=== PATIENT | female | born 1960 | race Caucasian/White ===

== ENCOUNTER 2020-01-23 17:00 | Emergency (ER) | payer BC ==
[2020-01-23] MEDS ORDERED: ONDANSETRON 4 MG TAB.RAPDIS PO ONE (18:07)
--- NOTE | 2020-01-23 18:09 | ER Document Report ---
ED Medical Screen (RME) - General Chief Complaint: High Blood Pressure Stated Complaint: BLOOD PRESSURE PROBLEM Time Seen by Provider: 01/23/20 18:06 Notes: 59-year-old female presented to ED for complaint of nausea and dizziness when she woke up at 330 this morning. She states she called her primary care doctor and while she was on the phone she had a blood pressure triple digits over triple digits and they told her to come to the emergency room. Her blood pressure is not triple digits over triple digits at this time but she does continue to have nausea and dizziness. She has been treated with Zofran in the emergency room for the dizziness and nausea and she will be seen by another provider. She is alert oriented respirations regular nonlabored speaking in full sentences. I have greeted and performed a rapid initial assessment of this patient. A comprehensive ED assessment and evaluation of the patient, analysis of test results and completion of medical decision making process will be conducted by an additional ED providers. - Related Data Allergies/Adverse Reactions: naproxen Allergy (Verified 01/23/20 18:00) Home Medications: Albuterol. Ibuprofen Past Medical History - Social History Chew tobacco use (# tins/day): No Frequency of alcohol use: None Drug Abuse: None Physical Exam - Vital signs Vitals: Temp Pulse Resp BP Pulse Ox 98.2 F 94 18 181/82 H 98 01/23/20 17:04 01/23/20 17:04 01/23/20 17:01/23/20 17:04 01/23/20 17:04 Course - Vital Signs Vital signs: Temp Pulse Resp BP Pulse Ox 98.2 F 94 18 181/82 H 98 01/23/20 18:00 01/23/20 17:04 01/23/20 17:01/23/20 17:04 01/23/20 17:04
--- NOTE | 2020-01-23 18:31 | ER Document Report ---
ED General - General Chief Complaint: High Blood Pressure Stated Complaint: BLOOD PRESSURE PROBLEM Time Seen by Provider: 01/23/20 18:06 Mode of Arrival: Ambulatory Information source: Patient TRAVEL OUTSIDE OF THE [place] IN LAST 30 DAYS: No - HPI Onset: This morning - around 330am when waking from sleep Onset/Duration: Gradual Quality of pain: Achy Severity: Moderate Pain Level: 1 - left sided headache pain Associated symptoms: Nausea, Other - Dizziness, Sense of being off balance Exacerbated by: Movement, Other - turning head to right Relieved by: Remaining still Similar symptoms previously: Yes - 7 years ago when she had Vertigo Recently seen / treated by doctor: No Notes: 59 year old female with a history of Asthma, Migraines, and a prior episode of Vertigo 7 years ago here in the ER for dizziness, feeling off balance, nausea, and high blood pressure since waking up for work this morning at 330am. The patient says she also seems to be having a mild migraine headache (left sided behind her eye mostly). The patient says she used to be on blood pressure medications but her doctor took her off it since her BPs normalized. The patient - Related Data Allergies/Adverse Reactions: naproxen Allergy (Verified 01/23/20 18:00) Home Medications: Albuterol. Ibuprofen Past Medical History - General Information source: Patient - Social History Smoking Status: Never Smoker Chew tobacco use (# tins/day): No Frequency of alcohol use: None Drug Abuse: None Family History: Reviewed & Not Pertinent Patient has suicidal ideation: No Patient has homicidal ideation: No Pulmonary Medical History: Reports: Hx Asthma Review of Systems - Review of Systems Constitutional: No symptoms reported EENT: No symptoms reported Cardiovascular: No symptoms reported Respiratory: No symptoms reported Gastrointestinal: Nausea Genitourinary: No symptoms reported Female Genitourinary: No symptoms reported Musculoskeletal: No symptoms reported Skin: No symptoms reported Hematologic/Lymphatic: No symptoms reported Neurological/Psychological: Headaches, Other - Dizziness/Vertigo Symptoms -: Yes All other systems reviewed and negative Physical Exam - Vital signs Vitals: Temp Pulse Resp BP Pulse Ox 98.2 F 94 18 181/82 H 98 01/23/20 17:04 01/23/20 17:04 01/23/20 17:04 01/23/20 17:04 01/23/20 17:04 - Notes Notes: GENERAL: Well-appearing, well-nourished and in no acute distress. HEAD: Atraumatic, normocephalic. EYES: Pupils equal round and reactive to light, extraocular movements intact, sclera anicteric, conjunctiva are normal. ENT: TMs normal, nares patent, oropharynx clear without exudates. Moist mucous membranes. NECK: Normal range of motion, supple without lymphadenopathy or JVD. LUNGS: Breath sounds clear to auscultation bilaterally and equal. No wheezes rales or rhonchi. HEART: Regular rate and rhythm without murmurs, rubs or gallops. ABDOMEN: Soft, nontender, normoactive bowel sounds. No guarding, no rebound. No masses appreciated. EXTREMITIES: Normal range of motion, no pitting or edema. No clubbing or cyanosis. NEUROLOGICAL: Cranial nerves II through XII grossly intact. Normal speech, normal gait. No nystagmus. Able to reproduce dizziness with head movements and sitting patient up. PSYCH: Normal mood, normal affect. SKIN: Warm, Dry, normal turgor, no rashes or lesions noted. Course - Re-evaluation Re-evalutation: 01/23/20 21:09 The patient is here for Vertigo like symptoms (dizziness made worse with head movements). The patient says this feels like the last time she had Vertigo about 7 years ago. The patient also has a mild headache but she says this is chronic for her. The patient had blood work and a UA in the ER showing no acute process. The patient's blood pressure was initially elevated but this came down after Meclizine improved her Vertigo symptoms and Fioricet improved her Headache. Patient told to follow up with a PCP and possibly a Neurologist for her Vertio. Patient has no signs a central vertigo on exam. - Vital Signs Vital signs: Temp Pulse Resp BP Pulse Ox 98.2 F 70 14 132/78 H 97 01/23/20 18:00 01/23/20 19:10 01/23/20 20:01 01/23/20 20:01 01/23/20 20:01 - Laboratory Result Diagrams: 01/23/20 18:20 01/23/20 18:20 Laboratory results interpreted by me: 01/23/20 01/23/20 01/23/20 18:18 18:20 18:20 WBC 12.2 H RBC 5.56 H RDW 14.3 H Absolute Neuts (auto) 9.7 H Seg Neutrophils % 79.7 H Sodium 136.9 L Glucose 119 H POC Glucose 114 H ALT 38 H Urine Protein Urine Blood Urine Urobilinogen 01/23/20 18:20 WBC RBC RDW Absolute Neuts (auto) Seg Neutrophils % Sodium Glucose POC Glucose ALT Urine Protein 100 H Urine Blood MODERATE H Urine Urobilinogen 2.0 H - EKG Interpretation by Me EKG shows normal: Sinus rhythm, [place], Intervals, QRS Complexes, ST-T Waves Rate: Normal Additional EKG results interpreted by me: 01/23/20 18:31 isolated T wave inversion in III Discharge - Discharge Clinical Impression: Vertigo Headache Qualifiers: Headache type: unspecified Headache chronicity pattern: chronic headache Intractability: not intractable Qualified Code(s): R51 - Headache Hypertension Qualifiers: Hypertension type: unspecified Qualified Code(s): I10 - Essential (primary) hypertension Condition: Stable Disposition: HOME, SELF-CARE Instructions: High Blood Pressure ([facility]), Headache ([facility]), Vertigo ([facility]) Additional Instructions: Use Meclizine as needed for dizziness/nausea. Follow up with your primary care doctor and consider follow up with an ENT Doctor (Dr. Weiss) for further work up and management of your Vertigo. Check your blood pressure when not having headaches or Vertigo symptoms to see if you need to go back on blood pressure medications. Talk with your primary care doctor about your ER visit today and tell him her you had blood work, an EKG, and urine analysis. Prescriptions: Meclizine HCl 25 mg PO Q8H PRN #20 tablet PRN Reason: Referrals: JIM WEISS, [ASSOCIATE] - Follow up as needed
[2020-01-23 18:34] LABS: ABSOLUTE LYMPHOCYTES (AUTO) 1.7 10^3/uL (0.5-4.7); ABSOLUTE MONOCYTES (AUTO) 0.7 10^3/uL (0.1-1.4); ABSOLUTE NEUT (AUTO) 9.7 10^3/uL (1.7-8.2); BASOPHILS % (AUTO) 0.4 % (0-2); EOSINOPHILS % (AUTO) 0.3 % (0-6); HEMATOCRIT 44.3 % (36.0-47.0); HEMOGLOBIN 15.5 g/dL (12.0-15.5); LYMPHOCYTES % (AUTO) 13.7 % (13-45); MEAN CORPUSCULAR HEMOGLOBIN 27.9 pg (27.0-33.4); MEAN CORPUSCULAR VOLUME 80 fl (80-97); MONOCYTES % (AUTO) 5.9 % (3-13); PLATELET COUNT 205 10^3/uL (150-450); RED BLOOD COUNT 5.56 10^6/uL (3.72-5.28); RED CELL DISTRIBUTION WIDTH 14.3 % (11.5-14.0); SEGMENTED NEUTROPHILS % (AUTO) 79.7 % (42-78); TOTAL CELLS COUNTED % (AUTO) 100 %; WHITE BLOOD COUNT 12.2 10^3/uL (4.0-10.5)
[2020-01-23 18:44] LABS: APPEARANCE,URINE SLIGHTLY-CLOUDY; BILIRUBIN,URINE NEGATIVE (NEGATIVE); COLOR,URINE YELLOW; GLUCOSE, URINE NEGATIVE (NEGATIVE); KETONES,URINE NEGATIVE (NEGATIVE); PROTEIN,URINE 100 mg/dL (NEGATIVE); URINE SPECIFIC GRAVITY 1.025
[2020-01-23] MEDS ORDERED: MECLIZINE HCL 25 MG TABLET PO ONE (18:49)
[2020-01-23 18:50] LABS: ALBUMIN 4.6 g/dL (3.5-5.0); ALKALINE PHOSPHATASE 106 U/L (38-126); ANION GAP 9 (5-19); ASPARTATE AMINO TRANSFERASE 36 U/L (14-36); BILIRUBIN,TOTAL 0.8 mg/dL (0.2-1.3); BLOOD UREA NITROGEN 15 mg/dL (7-20); CALCIUM 9.5 mg/dL (8.4-10.2); CARBON DIOXIDE 25 mmol/L (22-30); CHLORIDE 103 mmol/L (98-107); GLUCOSE 119 mg/dL (75-110); POTASSIUM 3.9 mmol/L (3.6-5.0); TOTAL PROTEIN 7.5 g/dL (6.3-8.2)
[2020-01-23] MEDS ORDERED: BUTALB/ACETAMINOPHEN/CAFFEINE 1 TAB EACH PO ONE (18:50)
--- NOTE | 2020-01-23 19:14 | EKG REPORT ---
SEVERITY:- NORMAL ECG - SINUS RHYTHM : Confirmed by: Kayden Moreno MD 23-Jan-2020 19:13:03
[2020-01-23 21:27] VITALS: BP 145/85
== END 2020-01-23 21:30 | disposition home or self-care (01) ==
LOC: ER 17:00
DX: R42 Dizziness and giddiness (principal); R51 Headache; R11.0 Nausea; I10 Essential (primary) hypertension
CPT/HCPCS: 93005; 99283; 36415; 82962; 85025; 80053; 81001; 84484; 93010; J3490; S0119